=== PATIENT | female | born 1960 | race Caucasian/White ===

== ENCOUNTER 2024-05-24 20:57 | Emergency (ER) | payer MEDICARE, MEDICAID, SELFPAY ==
[2024-05-24 20:59] VITALS: BP 145/88; PULSE 78; RESP 20; TEMP 36.6; O2SAT 99
[2024-05-24 21:01] VITALS: PULSE 79; RESP 20; O2SAT 99; BMI 41.5
--- NOTE | 2024-05-24 21:37 | XR_ITS ---
Examination: CT cervical spine without contrast 2-D sagittal reconstructions 2-D coronal reconstructions 3-D reconstructions. Exam date and time:May 24, 2024 1040 hrs. Indications: Patient fell today with injury to the neck, neck pain CTDI:vol (mGy) 15.9 DLP: (mGycm) 332 Technique: Multiple 2 mm axial sections of the cervical spine have been obtained. The coronal and sagittal reconstructions have been obtained. 3-D reconstructions have been obtained. Low dose protocols were performed. One or more of the following dose reduction techniques were used; automated exposure control, adjustment of the mA and/or KV according to patient size, use of iterative reconstruction technique. Findings: Axial sections demonstrate intact base of the skull. C1 exhibit satisfactory relationship to the odontoid. No acute cervical vertebral body fracture seen. Alignment posterior spinous processes satisfactory. Impression: No acute cervical fracture.
--- NOTE | 2024-05-24 21:37 | XR_ITS ---
Examination: CT maxillofacial, without intravenous contrast. 2-D sagittal reconstructions. 3-D reconstructions. Date and time of exam:May 24, 2024 1040 hrs. Indications: Patient fell today with injury to the face, facial pain CTDI: vol (mGy):34.6 DLP: (mGycm):681 Technique: Multiple axial images of maxillofacial region, 3.0 mm slice thickness. 2-D sagittal and coronal reconstructions. 3-D reconstructions. Low dose protocols were performed. One or more of the following dose reduction techniques were used; automated exposure control, adjustment of the mA and/or KV according to patient size, use of iterative reconstruction technique. Findings: Frontal bone intact Orbital rims intact No nasal bone fracture Pterygoid plates maxilla and the mandible intact Impression: No acute facial fracture.
--- NOTE | 2024-05-24 21:37 | XR_ITS ---
Examination: Wrist, left 3 views Technique: Wrist AP, oblique, lateral 3 views Date and time of exam: May 24, 2024 2140 hrs. Indications: Patient fell today with intravenous, wrist pain. Findings: Acute comminuted impacted intra-articular fractures distal radial metaphysis Comminuted fractures distal ulna Carpal bones intact Impression: Acute comminuted impacted intra-articular fractures distal radial metaphysis
--- NOTE | 2024-05-24 21:37 | XR_ITS ---
Examination: CT brain head without contrast. 2-D sagittal coronal reconstructions Date and time of exam:May 24, 2024 1040 hrs. Indications: Patient fell today with injury to the head, head pain CTDI: vol (mGy):54.5 DLP: (mGycm):1059 Technique: Multiple CT axial sections of the brain have been obtained, 5 mm slice thickness. Contrast has not been administered. 2-D sagittal, coronal reconstructions have been obtained Low dose protocols were performed. One or more of the following dose reduction techniques were used; automated exposure control, adjustment of the mA and/or KV according to patient size, use of iterative reconstruction technique. Findings: No significant ventricular enlargement. Intra-axial or extra-axial hemorrhage density is not seen. No mass effect or midline shift Basal cisterns are not remarkable. Fourth ventricle is midline. Cranial vault intact. Impression: Negative for acute hemorrhage, mass effect or midline shift
--- NOTE | 2024-05-24 21:38 | PD.EDRME ---
Rapid Medical Screening Exam [facility], [facility] Arrival date/time: 05/24/24 20:57 63F with history of HTN presents to ED with L wrist hand and head/face pain after her dog took off while she was holding on the leash and she fell. Chief Complaint: Fall Vital signs: Vital Signs Temperature 97.9 F 05/24/24 20:59 Pulse Rate 78 05/24/24 20:59 Respiratory Rate 20 05/24/24 20:59 Blood Pressure 145/88 H 05/24/24 20:59 Pulse Oximetry (%) 99 05/24/24 20:59 Oxygen Delivery Method Room Air 05/24/24 20:59
[2024-05-24] MEDS: HYDROcodone/APAP 5/325 TABLET 1 TAB PO (21:50)
--- NOTE | 2024-05-24 22:24 | PD.EDFALL ---
ED Fall Injury RME/HPI General Chief Complaint: Fall Stated Complaint: FALL Time Seen by Provider: 05/24/24 22:23 Arrival date/time: 05/24/24 20:57 RME / HPI RME / HPI Narrative: 05/24/24 20:57 63F with history of HTN presents to ED with L wrist hand and head/face pain after her dog took off while she was holding on the leash and she fell. ------ Dr. Leung?s Main ED Evaluation: 63yo female with pmhx HTN accompanied by her granddaughter presents to the ED for a chief complaint of a fall. Patient states she was standing on the porch with her dog on a leash when the dog started chasing a cat, pulling her forward and causing her to fall off the porch. Patient endorses having left wrist pain and a headache. Denies any loss of consciousness. She denies any neck pain, chest pain, abdominal pain, shortness of breath or any other associated symptoms. No known allergies. Patient states she has broken her left wrist twice before. Related Data Previous Rx's ?Medication ?Instructions ?Recorded tramadol 50 mg tablet (Ultram) 50 mg PO Q4HR PRN PAIN #20 tabs 11/12/13 hydrocodone 5 mg-acetaminophen 325 1 tab PO BID PRN pain #10 tabs 05/25/24 mg tablet ibuprofen 600 mg tablet 600 mg PO Q6H PRN pain #20 tabs 05/25/24 Allergies Allergy/AdvReac Type Severity Reaction Status Date / Time No Known Allergies Allergy Mild Uncoded 12/19/08 18:44 Review of Systems Review of Systems Systems Reviewed: All systems reviewed, normal except as documented Past Medical History Social History SMOKING STATUS: Never smoker ED Exam Narrative Physical exam: GENERAL APPEARANCE: alert and oriented x 4, well-developed, well-nourished, no acute distress VITALS: All vitals were reviewed and the pulse ox is 99% on room air, which is normal according to my interpretation. HEENT: Normocephalic, atraumatic; pupils equal, round, reactive to light; EOMI; mucous membranes pink, moist; oropharynx clear NECK: Supple LUNGS: CTABL; no wheezes, no rales, no rhonchi HEART: Regular rate, regular rhythm; normal S1, S2; no murmurs ABDOMEN: non distended; normal BS; soft, no tenderness, no guarding, no rebound; no masses, no organomegaly, no hernia BACK: no CVA tenderness EXTREMITIES: atraumatic; no edema NEUROLOGIC: awake; alert and oriented x4; cranial nerves II-XII grossly intact; no focal sensory or motor deficits PSYCHIATRIC: appropriate mood and affect SKIN: warm, dry, normal color; no rashes Course Quality Measures none Orders Category Date Time Status splint [Splint / Immobilizer] STAT Care 05/25/24 01:[address] cervical spine wo con Stat Exams 05/24/24 21:[address] facial bones wo con Stat Exams 05/24/24 21:[address] head/brain wo con Stat Exams 05/24/24 21:37 Completed XR wrist LT 2V Stat Exams 05/25/24 02:24 Taken XR wrist comp LT min 3V Stat Exams 05/24/24 21:37 Completed Etomidate Inj [Amidate Inj] Med 05/25/24 02:15 Discontinued 20 mg IVP X1 ONE HYDROcodone*/APAP 5/325 [[place] 5/325] Med 05/24/24 21:37 Discontinued 1 tab PO X1 ONE HYDROcodone/APAP 10/325 [[place] 10/325] Med 05/25/24 02:36 Discontinued 1 tab PO X1 ONE Ketamine Inj Med 05/25/24 01:07 Discontinued 100 mg IVP X1 ONE Vital Signs Vital signs: Vital Signs Temperature 97.9 F 05/24/24 20:59 Pulse Rate 78 05/24/24 20:59 Respiratory Rate 20 05/24/24 20:59 Blood Pressure 145/88 H 05/24/24 20:59 Pulse Oximetry (%) 99 05/24/24 20:59 Oxygen Delivery Method Room Air 05/24/24 20:59 Procedures -ED Orthopedic Fracture Reduction Fracture #1: Time Out Performed: Yes Side: left Fracture Reduction Location: radius and ulna Analgesia: procedural sedation Technique: direct manipulation Post Reduction X-rays Demonstrate: acceptable reduction Post-reduction neuro exam: intact and no change Post-reduction vascular exam: intact and no change Splint Applied: Yes Patient Tolerated Procedure: well and no complications Procedural Sedation Indication: fracture/dislocation reduction Presedation Evaluation: Patient is alert, awake, and talking. She is sitting in semifowler's position. Preparation: monitoring tech applied, pulse oximeter, capnometry used, supplemental O2 applied, reversal agents at bedside, suction/airway equipment at bedside and IV secured IV Etomidate dose (mg): 10 Patient Tolerated Procedure: well and no complications Fall Patient data External records reviewed:: [facility] previous records (Per chart review, patient has no previous ED visits or admissions to this facility.) Clinical information provided by:: patient Social determinants that could affect healthcare access:: none Patient has the following chronic illnesses:: HTN How is presenting disease/condition affected by chronic disease/condition?: uneffected by Evaluation data The following diagnostics were reviewed and interpreted by me:: radiology exam(s) Lab and/or radiology exams considered but not ordered:: none Interpretation Summary: Post reduction x-ray of the left wrist shows great improvement of the radial and ulnar fractures, according to my interpretation. [facility] Report Signed Patient: [facility]. Record#: [id number] Birthdate: 1960 Age/Sex: 63 / F Location: [facility] Attending Dr: Ordering Physician: Dennis Ambriz PA-C Date of Service: 05/24/24 Procedure(s): XR wrist comp LT min 3V Accession Number(s): [id number] cc: Fran Cotter MD; Dennis Ambriz PA-C~ Examination: Wrist, left 3 views Technique: Wrist AP, oblique, lateral 3 views Date and time of exam: May 24, 2024 2140 hrs. Indications: Patient fell today with intravenous, wrist pain. Findings: Acute comminuted impacted intra-articular fractures distal radial metaphysis Comminuted fractures distal ulna Carpal bones intact Impression: Acute comminuted impacted intra-articular fractures distal radial metaphysis Dictated By: Fran Cotter MD Signed By: <Electronically signed by Fran Cotter MD in OV> 05/24/242146 [facility] Report Signed Patient: TAYLOR JOSE [facility]. Record#: [id number] Birthdate: 1960 Age/Sex: 63 / F Location: [facility] Attending Dr: Ordering Physician: Dennis Ambriz PA-C Date of Service: 05/24/24 Procedure(s): CT cervical spine wo con Accession Number(s): [id number] cc: Fran Cotter MD; NO PRIMARY/FAMILY,PHYSICIAN; Dennis Ambriz PA-C~ Examination: CT cervical spine without contrast 2-D sagittal reconstructions 2-D coronal reconstructions 3-D reconstructions. Exam date and time:May 24, 2024 1040 hrs. Indications: Patient fell today with injury to the neck, neck pain CTDI:vol (mGy) 15.9 DLP: (mGycm) 332 Technique: Multiple 2 mm axial sections of the cervical spine have been obtained. The coronal and sagittal reconstructions have been obtained. 3-D reconstructions have been obtained. Low dose protocols were performed. One or more of the following dose reduction techniques were used; automated exposure control, adjustment of the mA and/or KV according to patient size, use of iterative reconstruction technique. Findings: Axial sections demonstrate intact base of the skull. C1 exhibit satisfactory relationship to the odontoid. No acute cervical vertebral body fracture seen. Alignment posterior spinous processes satisfactory. Impression: No acute cervical fracture. Dictated By: Fran Cotter MD Signed By: <Electronically signed by Fran Cotter MD in OV> 05/24/24 6950 ------ [facility] Signed Patient: TAYLOR JOSE Record#: [id number] Birthdate: 1960 Age/Sex: 63 / F Location: [facility] Attending Dr: Ordering Physician: Dennis Ambriz PA-C Date of Service: 05/24/24 Procedure(s): CT facial bones wo con Accession Number(s): [id number] cc: Fran Cotter MD; NO PRIMARY/FAMILY,PHYSICIAN; Dennis Ambriz PA-C~ Examination: CT maxillofacial, without intravenous contrast. 2-D sagittal reconstructions. 3-D reconstructions. Date and time of exam:May 24, 2024 1040 hrs. Indications: Patient fell today with injury to the face, facial pain CTDI: vol (mGy):34.6 DLP: (mGycm):681 Technique: Multiple axial images of maxillofacial region, 3.0 mm slice thickness. 2-D sagittal and coronal reconstructions. 3-D reconstructions. Low dose protocols were performed. One or more of the following dose reduction techniques were used; automated exposure control, adjustment of the mA and/or KV according to patient size, use of iterative reconstruction technique. Findings: Frontal bone intact Orbital rims intact No nasal bone fracture Pterygoid plates maxilla and the mandible intact Impression: No acute facial fracture. Dictated By: Fran Cotter MD Signed By: <Electronically signed by Fran Cotter MD in OV> 05/24/24 [id number] [facility] Signed Patient: TAYLOR JOSE Record#: [id number] Birthdate: 1960 Age/Sex: 63 / F Location: [facility] Attending Dr: Ordering Physician: Dennis Ambriz PA-C Date of Service: 05/24/24 Procedure(s): CT head/brain wo con Accession Number(s): [id number] cc: Fran Cotter MD; NO PRIMARY/FAMILY,PHYSICIAN; Dennis Ambriz PA-C~ Examination: CT brain head without contrast. 2-D sagittal coronal reconstructions Date and time of exam:May 24, 2024 1040 hrs. Indications: Patient fell today with injury to the head, head pain CTDI: vol (mGy):54.5 DLP: (mGycm):1059 Technique: Multiple CT axial sections of the brain have been obtained, 5 mm slice thickness. Contrast has not been administered. 2-D sagittal, coronal reconstructions have been obtained Low dose protocols were performed. One or more of the following dose reduction techniques were used; automated exposure control, adjustment of the mA and/or KV according to patient size, use of iterative reconstruction technique. Findings: No significant ventricular enlargement. Intra-axial or extra-axial hemorrhage density is not seen. No mass effect or midline shift Basal cisterns are not remarkable. Fourth ventricle is midline. Cranial vault intact. Impression: Negative for acute hemorrhage, mass effect or midline shift Dictated By: Fran Cotter MD Signed By: <Electronically signed by Fran Cotter MD in OV> 05/24/24 6217 Medications / Prescriptions Medications or Prescriptions considered but not ordered:: none Medication administrations:: Medication Administration History Discontinued Medications Hydrocodone Bitart/Acetaminophen (Hydrocodone/Apap 5/325 Tablet) 1 tab PO X1 ONE Stop: 05/24/24 21:38 Last Admin: 05/24/24 21:50 Dose: 1 tab Documented By: BEN Hydrocodone Bitart/Acetaminophen (Hydrocodone/Apap 10/325 Tab) 1 tab PO X1 ONE Stop: 05/25/24 02:37 Last Admin: 05/25/24 02:48 Dose: 1 tab Documented By: MELANIE Etomidate (Etomidate Inj 2 Mg/Ml Vial 10 Ml) 20 mg IVP X1 ONE Stop: 05/25/24 02:16 Last Admin: 05/25/24 02:19 Dose: 10 mg Documented By: MELANIE Ketamine HCl (Ketamine 50 Mg/Ml Vial 10 Ml) 100 mg IVP X1 ONE Stop: 05/25/24 01:08 Last Admin: 05/25/24 02:32 Dose: Not Given Documented By: MELANIE Non-Admin Reason: Other, see note see above Consultations Consultation(s) initiated? (list below): No Diagnosis Fall Differential Diagnosis: other (ulnar fracture, radial fracture, dislocation, contusion) Most likely diagnosis given after review of the tests above:: see below Admission Indicated Admission indicated?: not indicated Admission Request Was there a request for admission?: No Disposition Plan Disposition Plan: Discharge Discharge Attestation Discharge Attestation: The patient and all family members were given an opportunity to ask questions and understood the discharge instructions. Discharge instructions specifically effects, indications for sooner follow up or return to the emergency department, and the expected course of current diagnosis. Patient condition: Stable Discharge Plan Plan Patient Disposition: HOME (Self Care) Disposition Comment: Stable for discharge Patient condition on transfer: Stable Prescriptions/Referrals Prescriptions/Med Rec: New ibuprofen 600 mg tablet 600 mg PO Q6H PRN (Reason: pain) Qty: 20 0RF hydrocodone-acetaminophen 5-325 mg tablet 1 tab PO BID MDD 2 PRN (Reason: pain) Qty: 10 0RF No Action tramadol [Ultram] 50 MG tablet 50 mg PO Q4HR PRN (Reason: PAIN) Qty: 20 0RF Rx Instructions: FOR PAIN, NOT TO EXCEED 8 TABS IN 24 HRS Referrals: No Primary/Family,Physician [Primary Care Provider] - In 1 week Clay Zapata MD [Physician] - In 1 week Problem List Clinical Impression: Fracture of radius and ulna near wrist Patient/Caregiver Discharge Instructions Discharge Activity: activity as tolerated Education Materials: Wrist Fracture, ED Forearm Fracture with Reduction Additional Instructions: Return to the emergency department for any worsening or any further medical problems If you notice any increased swelling, increased pain to the left hand, discoloration of your left fingers, numbness or tingling, or any other problems with your left hand please come back to the ER immediately otherwise you should follow-up with Dr. Tesfaye within the next week or so. I would give his office a call and make an appointment please He should follow-up with your primary care doctor as well within the next several days Please be careful when you are taking the [place]. You should not be driving or operating any heavy machinery while taking this medication. It may make you slightly dizzy Print Language: Bruneian Stand Alone Forms: [facility] Info., Patient Portal Info Letter
[2024-05-24 22:32] VITALS: BP 178/95; PULSE 77; RESP 18; TEMP 37.1; O2SAT 95
[2024-05-25] VITALS (11 sets, daily range): BP systolic 161–201; BP diastolic 95–119; PULSE 80–102; RESP 14–27; TEMP 36.9; O2SAT 94–100
[2024-05-25] MEDS: ETOMIDATE INJ 2 MG/ML VIAL 10 ML 20 MG IVP (02:19)
--- NOTE | 2024-05-25 02:24 | XR_ITS ---
Examination: Left wrist 2 views Technique one AP lateral left wrist 2 views Exam date and time: May 25, 2024 0230 hrs. Comparison May 24, 2024 Indications: Acute intra-articular comminuted impacted fracture distal radial metaphysis post reduction films. Findings: Improved alignment of the comminuted fracture distal radius Carpal bones intact Impression: Improved alignment comminuted fracture distal radius
--- NOTE | 2024-05-25 02:38 | EDNOTE_ITS ---
Emergency Room Addendum Addendum Narrative: Dr. Leung requests [facility] since his eScript has not been setup yet. Rx sent.
--- NOTE | 2024-05-25 02:38 | PD.EDADDENDU ---
Emergency Room Addendum Addendum Narrative: Dr. Leung requests [facility] since his eScript has not been setup yet. Rx sent.
[2024-05-25] MEDS: HYDROcodone/APAP 10/325 TAB PO (02:48)
== END 2024-05-25 03:06 | disposition home or self-care (01) ==
PROVIDERS: Emergency Provider Emergency Medicine
DX: S52.572A Other intraarticular fracture of lower end of left radius, initial encounter for closed fracture (principal); S52.692A Other fracture of lower end of left ulna, initial encounter for closed fracture; S19.9XXA Unspecified injury of neck, initial encounter; S09.93XA Unspecified injury of face, initial encounter; S09.90XA Unspecified injury of head, initial encounter; W19.XXXA Unspecified fall, initial encounter; Y93.K1 Activity, walking an animal
CPT/HCPCS: 25565; 70450; 70486; 72125; 73100; 73110; 99285; J3490; A9270

== ENCOUNTER → 2024-07-16 | Outpatient (CLI) | payer MEDICARE, MEDICAID, SELFPAY ==
--- NOTE | 2024-07-16 14:43 | XR_ITS ---
Examination: Left wrist 2 views Technique one AP lateral left wrist 2 views Exam date and time: July 16, 2024 1521 hours Comparison May 25 2024 FINDINGS: Partial healing fracture distal radial metaphysis with significant impaction Healed fracture distal ulna Severe osteopenia IMPRESSION: Partial healing impacted fracture distal radial metaphysis
== END | disposition home or self-care (01) ==
LOC: CDIM 14:32
PROVIDERS: Referring Provider Orthopaedic Surgery; Visit Provider Orthopaedic Surgery
DX: S52.92XD Unspecified fracture of left forearm, subsequent encounter for closed fracture with routine healing (principal); X58.XXXD Exposure to other specified factors, subsequent encounter
CPT/HCPCS: 73100

== ENCOUNTER 2025-04-30 13:30 | Emergency (ER) | payer MEDICARE, MEDICAID, SELFPAY ==
--- NOTE | 2025-04-30 13:33 | XR_ITS ---
Examination: CT thoracic spine, without contrast. 2-D sagittal reconstructions. 2-D coronal reconstructions. 3-D reconstructions. Date and time of exam: 04/30/2025, 2:34 p.m. INDICATION: Upper and lower back pain after fall. COMPARISON: None other than concurrent CT lumbar spine CTDI: vol (mGy): 35.1 DLP: (mGycm): 1098 Technique: Multiple 1.25 mm axial sections of the thoracic spine have been obtained. 2-D sagittal and coronal reconstructions have been obtained. 3-D reconstructions have been obtained. Low dose protocols were performed. One or more of the following dose reduction techniques were used; automated exposure control, adjustment of the mA and/or KV according to patient size, use of iterative reconstruction technique. Findings: Diffuse osteopenia is present. Acute low-grade compression fracture involves the superior and inferior endplates of L1. No evidence for acute vertebral compression fracture in the thoracic spine. The posterior elements appear intact. Multifocal spondylosis is present, including prominent bulky osteophytes including multilevel anterior bridging in the thoracic spine with prominent thoracic kyphosis. Mild to moderate thoracic dextroscoliosis is present. No evidence for large disc protrusion or disc extrusion. Small posterior disc protrusion is identified at T11-T12. There is no significant acquired central canal stenosis. Multilevel bilateral facet arthropathy is present. Moderate to borderline high-grade right neural foraminal stenosis identified at T2-T3, milder at T1-T2. No concerning lytic or blastic lesions are seen. An indeterminate solid nodule in the left upper lobe measures approximately 8 mm AP. IMPRESSION: Acute compression fractures involving the superior and inferior endplates of L1. Otherwise, no acute vertebral compression fracture in the thoracic spine. Multilevel thoracic degenerative changes. Indeterminate 8 mm left upper lobe nodule. A follow-up chest CT or PET/CT in 3 months is recommended.
--- NOTE | 2025-04-30 13:33 | XR_ITS ---
Examination: CT lumbar spine, without contrast. 2-D sagittal reconstructions. 2-D coronal reconstructions. 3-D reconstructions. Date and time of exam: 04/30/2025, 2:20 p.m. INDICATION: Upper and lower back pain after fall. COMPARISON: None other than concurrent CT thoracic spine CTDI: vol (mGy): 35.6 DLP: (mGycm): 1036 Technique: Multiple 1.25 mm axial sections of the lumbar spine have been obtained. 2-D sagittal and coronal reconstructions have been obtained. 3-D reconstructions have been obtained. Low dose protocols were performed. One or more of the following dose reduction techniques were used; automated exposure control, adjustment of the mA and/or KV according to patient size, use of iterative reconstruction technique. Findings: Prominent diffuse osteopenia is present. Acute low-grade compression fractures of the L1 superior and inferior endplates is identified. There is approximate 26% vertical height loss. No fracture retropulsion. No other acute lumbar vertebral fractures are seen. No aggressive bone lesions. Multilevel lumbar spondylosis is present, including Baastrup's degenerative changes and bilateral facet arthropathy. No evidence for significant disc space narrowing. At L5-S1, a mild grade 1 anterolisthesis is present with a multifactorial moderate right-sided and very mild left-sided neural foraminal stenosis, as well as mild central canal stenosis due to severe bilateral facet arthropathy. At L4-L5, there is a minimal grade 1 anterolisthesis and there is mild hypertrophic facet arthropathy and ligamentum flavum thickening/buckling resulting in severe central canal stenosis, moderate left neural foraminal stenosis and mild to moderate right neural foraminal stenosis. At L3-L4, there is a very mild broad posterior disc protrusion. There is bilateral hypertrophic facet arthropathy. Central canal stenosis and right neural foraminal stenosis are minimal. Disc ossify complex contributes to moderate left neural foraminal stenosis and combination of facet arthropathy. At L2-L3, there is a mild broad posterior disc protrusion slightly indenting the thecal sac and mild encroaching the lower ventral portions of the neural foramina. No significant acquired central canal or neural foraminal stenosis. At L1-L2, no significant disc protrusion, no significant acquired central canal or neural foraminal stenosis. No evidence for retroperitoneal hematoma, lymphadenopathy or other mass in the [id number]. Aortobiiliac atherosclerotic calcifications without aneurysm by size criteria although there is a slight ectasia of the infrarenal abdominal aorta measuring approximately 2.3 x 2.0 cm in transaxial dimensions. Punctate nonobstructive calculus at the inferior pole right kidney. Impression: Acute compression fractures of the L1 superior and inferior endplates without fracture or retropulsion. Multilevel lumbar spondylosis and degenerative disc changes with central canal and neural foraminal stenosis, greatest at L4-L5. Ancillary findings as above.
--- NOTE | 2025-04-30 13:34 | PD.EDADULT ---
ED General RME/HPI General Chief complaint: Fall Stated complaint: FALL Time Seen by Provider: 04/30/25 13:33 Arrival date/time: 04/30/25 13:30 CC: Mid/low back pain HPI patient was tugging on a door that was jammed it fairly popped open causing the patient to fall backwards landing on her back. Occurred at approximately 10:20 AM. The patient took half a Vicodin called 911 several hours later. Now presents with hypertension. EMS report no other symptoms. Low back pain is 7-8 on a 10 scale. Patient denies bowel or bladder symptoms saddle anesthesia numbness tingling or weakness in the lower extremities. Related Data Previous Rx's ?Medication ?Instructions ?Recorded tramadol 50 mg tablet (Ultram) 50 mg PO Q4HR PRN PAIN #20 tabs 11/12/13 hydrocodone 5 mg-acetaminophen 325 1 tab PO BID PRN pain #10 tabs 05/25/24 mg tablet ibuprofen 600 mg tablet 600 mg PO Q6H PRN pain #20 tabs 05/25/24 ibuprofen 800 mg tablet 800 mg PO TID PRN pain #30 tabs 05/30/24 meloxicam 7.5 mg tablet 7.5 mg PO QDAY #14 tabs 04/30/25 ondansetron 4 mg disintegrating 4 mg PO Q8H #10 tabs 04/30/25 tablet Allergies Allergy/AdvReac Type Severity Reaction Status Date / Time No Known Allergies Allergy Mild Uncoded 12/19/08 18:44 Review of Systems Review of Systems Narrative Review of Systems: GEN: No fever, no chills, no weight loss EYES: No discharge, no visual changes, no pain HEENT: No ear pain, no congestion, no sore throat PULM: No shortness of breath, no cough, no congestion CV: No chest pain, no dyspnea on exertion, no palpitations GI: No nausea, no vomiting, no diarrhea, no pain, no constipation : No frequency, no urgency, no dysuria MUSC/SKEL: No joint pain, + back pain SKIN: No rash PSYCH: No hallucinations, no depression HEME/LYMPH: No easy bleeding or bruising tendencies NEURO: No weakness, no headache ED Exam Narrative Physical exam: [General: Obese not in moderate discomfort but not in any acute distress Head normocephalic no step-offs hematoma induration ulceration or crepitus and no depressions. HEENT: Eyes pupils are PERRLA EOMs are intact mouth pink moist membranes uvula is midline swallow symmetrical phonation is normal. All other subsystems of HEENT are within acceptable limits Neck is supple nontender no tenderness with palpation of the cervical spine processes. Full range of motion flexion extension and rotation cleared via Nexus criteria. Chest equal chest rise nontender to palpation Respiratory: Clear to auscultation no wheezes crackles or rubs CV: Rate rhythm is regular no murmurs rubs or clicks Abdomen is distended secondary to body habitus soft nontender no masses positive bowel sounds all 4 quadrants Back: Mid to lower back pain with tenderness to palpation no gross deformities appreciated. Tenderness from T10-L4. Skin: Intact no petechiae rash induration ulceration or crepitus Extremities: Decreased range of motion of the lower extremity secondary to back pain. Moving all other extremities against resistance cap refill less than 2 seconds neurosensory intact Neuro: Awake alert oriented x3 Glascow coma 15 no focal deficits cranial nerves II through XII are grossly intact. Course Course Course Narrative: Patient is informed of her condition, will place the patient in a TLSO brace, and discharged her home with pain medication. Patient is to follow-up with orthopedics. If there are neurologic symptoms patient is advised to return the emergency room for reevaluation. Patient is advised also that she is now a higher fall risk. Quality Measures none Orders Category Date Time Status Miscellaneous Nursing Order NOW Care 04/30/25 15:56 Completed Saline [Insert IV] NOW Care 04/30/25 13:[address] lumbar spine wo con Stat Exams 04/30/25 13:[address] thoracic spine wo con Stat Exams 04/30/25 13:33 Completed CBC Stat Lab 04/30/25 14:10 Completed CMP [Comprehensive Metabolic Panel] Stat Lab 04/30/25 14:10 Completed PT [Prothrombin Time with INR] Stat Lab 04/30/25 14:10 Completed PTT [Partial Thromboplastin Time] Stat Lab 04/30/25 14:10 Completed Ketorolac Inj [Toradol Inj] Med 04/30/25 15:28 Discontinued 15 mg IVP X1 ONE Morphine* Inj Med 04/30/25 13:40 Discontinued 4 mg IVP X1 ONE Ondansetron Inj [Zofran Inj] Med 04/30/25 13:40 Discontinued 4 mg IVP X1 ONE Prochlorperazine Inj [Compazine Inj] Med 04/30/25 16:26 Discontinued 10 mg IV X1 ONE hydrALAZINE INJ [Apresoline Inj] Med 04/30/25 19:25 Discontinued 10 mg IVP X1 ONE oxyCODONE/APAP 5/325 [Percocet 5/325] Med 04/30/25 15:56 Discontinued 1 tab PO X1 ONE Vital Signs Vital signs: Vital Signs Temperature 97.6 F 04/30/25 13:50 Pulse Rate 77 04/30/25 13:50 Respiratory Rate 18 04/30/25 13:50 Blood Pressure 184/112 H 04/30/25 13:50 Pulse Oximetry (%) 97 04/30/25 13:50 Oxygen Delivery Method Room Air 04/30/25 13:50 Discharge Plan Plan Patient Disposition: HOME (Self Care) Patient condition on transfer: Stable Prescriptions/Referrals Prescriptions/Med Rec: New meloxicam 7.5 mg tablet 7.5 mg PO QDAY Qty: 14 0RF ondansetron 4 mg tablet,disintegrating 4 mg PO Q8H Qty: 10 0RF No Action tramadol [Ultram] 50 MG tablet 50 mg PO Q4HR PRN (Reason: PAIN) Qty: 20 0RF Rx Instructions: FOR PAIN, NOT TO EXCEED 8 TABS IN 24 HRS ibuprofen 600 mg tablet 600 mg PO Q6H PRN (Reason: pain) Qty: 20 0RF hydrocodone-acetaminophen 5-325 mg tablet 1 tab PO BID MDD 2 PRN (Reason: pain) Qty: 10 0RF ibuprofen 800 mg tablet 800 mg PO TID PRN (Reason: pain) Qty: 30 0RF Referrals: No Primary/Family,Physician [Primary Care Provider] - In 1 week Melo Nava MD [Physician, Orthopedics] - In 1 week Problem List Clinical Impression: Closed L1 vertebral fracture Patient/Caregiver Discharge Instructions Education Materials: Back Safety: Pushing and Pulling, ED Transverse Process Fracture Additional Instructions: Wear the brace during the the day, take the medications as needed for pain. Follow-up with an orthopedic doctor of your choice of the 1 listed above preferably look for a back specialist. Be very careful with balance, expect this to heal over the next 8 weeks. Print Language: Mauritanian Stand Alone Forms: [place] [employer] Work/School Release, Patient Portal Info Letter PA/BRIDGETT Supervising Physician BENEDICT/BRIDGETT Supervising Physician: Sukh Romero ENP [facility] Labs Labs: interpreted by me Lab(s) Interpretation(s): CBC shows a mild leukocytosis of 15.5 no anemia or thrombocytopenia CMP shows no significant electrolyte imbalances other than a glucose of 149 no transaminitis or T. bili elevation. Imaging Imaging interpretation: interpreted by me Imaging Interpretation(s): L CT shows L1 superior and inferior endplate fracture without retropulsion. Thoracic CT shows the same no other acute findings Medication Administration(s) Medication Administration History Discontinued Medications Hydralazine HCl (Hydralazine Inj 20 Mg/Ml Vial) 10 mg IVP X1 ONE Stop: 04/30/25 19:26 Last Admin: 04/30/25 19:30 Dose: 10 mg Documented By: CB Ketorolac Tromethamine (Ketorolac Inj 30 Mg/Ml Vial) 15 mg IVP X1 ONE Stop: 04/30/25 15:29 Last Admin: 04/30/25 15:35 Dose: 15 mg Documented By: ED Morphine Sulfate (Morphine Sulf Inj 4 Mg/Ml Vial) 4 mg IVP X1 ONE Stop: 04/30/25 13:41 Last Admin: 04/30/25 14:18 Dose: 4 mg Documented By: ED Ondansetron HCl (Ondansetron Inj 2 Mg/Ml Inj 2 Ml) 4 mg IVP X1 ONE; Protocol Stop: 04/30/25 13:41 Last Admin: 04/30/25 14:14 Dose: 4 mg Documented By: ED Oxycodone/Acetaminophen (Oxycodone/Apap 5/325 Tablet) 1 tab PO X1 ONE Stop: 04/30/25 15:57 Last Admin: 04/30/25 18:29 Dose: 1 tab Documented By: ED Prochlorperazine Edisylate (Prochlorperazine Inj 5 Mg/Ml Vial 2 Ml) 10 mg IV X1 ONE; Protocol Stop: 04/30/25 16:27 Last Admin: 04/30/25 16:33 Dose: 10 mg Documented By: ED
[2025-04-30 13:39] VITALS: PULSE 82; RESP 22; O2SAT 98; BMI 37.8
[2025-04-30 13:50] VITALS: BP 184/112; PULSE 77; RESP 18; TEMP 36.4; O2SAT 97
[2025-04-30] MEDS: ONDANSETRON INJ 2 MG/ML INJ 2 ML 4 MG IVP (14:14)
[2025-04-30] MEDS: MORPHINE SULF INJ 4 MG/ML VIAL IVP (14:18)
--- NOTE | 2025-04-30 14:20 | PC.NURSE ---
Pt. here from home to room 2, pt. states she was trying to open her door and fell backwards, pt. states she landed on the wood floor, pt. complaining of pain to the middle of her back, no bruising noted to pt.'s mid back, pt. states no pain below her underwear line. Pt. states the pain is causing her nausea. No s/s of distress noted at this time.
[2025-04-30 15:03] LABS: Alanine Aminotransferase 22 U/L (10-49); Albumin, Serum 5.3 gm/dL (3.4-4.8); Albumin/Globulin Ratio 2.5 (1.2-2.2); Alkaline Phosphatase 84 U/L (46-116); Anion Gap 12 (7-16); Aspartate Amino Transferase 29 U/L (0-34); BUN/Creatinine Ratio 11 Ratio (12-20); Bilirubin,Total 0.7 mg/dL (0.3-1.2); Blood Urea Nitrogen 8 mg/dL (9-23); Calcium 10.1 mg/dL (8.3-10.6); Calcium (Corrected) 10.1 mg/dL (8.5-10.1); Carbon Dioxide 24.5 mMol/L (20.0-31.0); Chloride 103 mMol/L (98-107); Creatinine (Component) 0.7 mg/dL (0.6-1.3); Estimated Creatinine Clearance 81.1 mL/min (>60); Globulin 2.1 gm/dL (2.3-3.5); Glucose 149 mg/dL (74-106); Osmolality,Calculated 278 (275-295); Potassium 4.4 mMol/L (3.4-5.1); Sodium 139 mMol/L (136-145); Total Protein 7.4 gm/dL (5.7-8.2); eGFR > 60 See Note
[2025-04-30 15:20] LABS: INR 1.0 (0.9-1.3); Partial Thromboplastin Time 22.6 Seconds (22.0-36.0); Prothrombin Time 10.6 Seconds (9.0-12.2)
[2025-04-30] MEDS: KETOROLAC INJ 30 MG/ML VIAL 15 MG IVP (15:35)
[2025-04-30 15:53] LABS: Basophils # (Auto) 0.1 Thou/mm3 (0.0-0.2); Basophils % (Auto) 0 % (0-2.5); Eosinophils # (Auto) 0.0 Thou/mm3 (0.0-0.5); Eosinophils % (Auto) 0 % (0-10); Hematocrit 45.0 % (36.0-46.0); Hemoglobin 14.6 g/dL (12.0-16.0); Immature Granulocytes Auto 0.07 Thou/mm3 (0.00-0.00); Lymphocytes # (Auto) 1.3 Thou/mm3 (1.0-4.8); Lymphocytes % (Auto) 9 % (10-50); Mean Corpuscular HGB Conc 32.4 g/dl (31.0-37.0); Mean Corpuscular Hemoglobin 29.3 pg (25.0-35.0); Mean Corpuscular Volume 90 fL (80-100); Monocytes # (Auto) 0.5 Thou/mm3 (0.0-0.8); Monocytes % (Auto) 3 % (0-12); Neutrophils # (Auto) 13.5 Thou/mm3 (1.8-7.7); Neutrophils % (Auto) 87 % (37-80); Nucleated Red Blood Cell # 0.00 Thou/mm3 (0.00-0.00); Nucleated Red Blood Cell % 0 /100 WBC (0); Platelet Count 244 Thou/mm3 (140-440); RDW Standard Deviation 41.8 fL (36.4-46.3); Red Blood Count 4.99 Miln/mm3 (4.00-5.20); White Blood Count 15.5 Thou/mm3 (3.6-11.0)
[2025-04-30] MEDS: PROCHLORPERAZINE INJ 5 MG/ML VIAL 2 ML 10 MG IV (16:33)
[2025-04-30 19:30] VITALS: BP 194/116; PULSE 77
[2025-04-30] MEDS: hydrALAZINE INJ 20 MG/ML VIAL 10 MG IVP (19:30)
[2025-04-30 19:31] VITALS: BP 194/116; PULSE 77; RESP 19; TEMP 36.8; O2SAT 99
[2025-04-30 20:32] VITALS: BP 179/100; PULSE 79; RESP 16; TEMP 36.8; O2SAT 99
== END 2025-04-30 20:34 | disposition home or self-care (01) ==
PROVIDERS: Registered Nurse General Practice; Emergency Provider Emergency Medicine
DX: S32.018A Other fracture of first lumbar vertebra, initial encounter for closed fracture (principal); W23.0XXA Caught, crushed, jammed, or pinched between moving objects, initial encounter; I10 Essential (primary) hypertension
CPT/HCPCS: 36415; 72128; 72131; 80053; 85025; 85610; 85730; 96374; 96375; 99284; J0360; J0780; J1885; J2270; J2405; A9270

== ENCOUNTER 2025-05-02 10:53 | Emergency (ER) | payer MEDICARE, MEDICAID, SELFPAY ==
[2025-05-02] VITALS (8 sets, daily range): BP systolic 149–214; BP diastolic 89–155; PULSE 86–99; RESP 16–21; TEMP 37.1–37.5; O2SAT 94–98; BMI 37.8
--- NOTE | 2025-05-02 11:48 | PD.EDBACK ---
ED Back Injury Pain RME/HPI General Chief Complaint: Back Pain/Injury Stated Complaint: BACK PAIN Time Seen by Provider: 05/02/25 11:16 Arrival date/time: 05/02/25 10:53 64-year-old female patient with significant history of hypertension, came in for evaluation regarding ground-level fall. Patient sustained a ground-level fall about 2 days ago, landing on her buttocks. Patient came today to the emergency room, and was noted to have L1 superior endplate fracture with loss of height about 26%. Patient denies any head injury denies any neck pain denies any chest pain. Patient was discharged home. At home patient was noted to be vomiting a lot according to her due to so much pain. She denies any urinary or bladder incontinence. She lives with her daughter who is overwhelmed right now who cannot take over her due to another family issues. Patient denies any lower extremity weakness or paresthesia. Her pain is described as sharp pain, severity moderate. She is asking for help and pain control. Related Data Home Medications ?Medication ?Instructions ?Recorded ?Confirmed atorvastatin 20 mg tablet 20 mg PO QDAY 05/02/25 05/02/25 lisinopril 10 mg tablet 10 mg PO QDAY 05/02/25 05/02/25 Previous Rx's ?Medication ?Instructions ?Recorded ibuprofen 600 mg tablet 600 mg PO Q6H PRN pain #20 tabs 05/25/24 Allergies Allergy/AdvReac Type Severity Reaction Status Date / Time No Known Allergies Allergy Verified 05/02/25 11:11 Review of Systems Review of Systems Narrative Review of Systems: Review of system reviewed and within normal limits except mentioned in HPI ED Exam Narrative Physical exam: VITAL SIGNS: Reviewed. GENERAL APPEARANCE: Alert and interactive, follows commands, no acute distress, HEAD AND FACE: Non-traumatic. ENT: PERRL, pink conjunctivitis, eyelid no trauma, Mucous membrane moist. NECK: Supple, nontender, no nuchal rigidity. CHEST: No tenderness, no crepitus, no paradoxical movement, no retractions. LUNGS: Clear, well ventilated, symmetric, no rales, no wheezing, no ronchi, no stridor, good breath sounds bilaterally. HEART: Regular rate, regular rhythm, no murmur, no gallops. ABDOMEN: Soft, positive bowel sounds, nondistended, no guarding, nontender, no rebound, no masses, RECTAL: Deferred. GENITAL: Deferred. NEUROLOGICAL: Gross motor function intact sensory function intact, Appropriate for age. MUSCULOSKELETAL: low back tenderness, no crepitus, full range of motion. EXTREMITIES: Nontender, full range of motion. SKIN: Color pink, dry, no rash, no lacerations, no abrasions, no contusions. LYMPHATICS: Deferred. Course Quality Measures none Orders Category Date Time Status IV [Insert IV] NOW Care 05/02/25 11:55 Active PT [Referral Physical Therapy] Stat Cons 05/02/25 11:47 Completed Transfer/Discharge Routine Discharge 05/02/25 Active CBC [CBC] Stat Lab 05/02/25 12:08 Completed CMP [Comprehensive Metabolic Panel] Stat Lab 05/02/25 12:08 Completed PTT [Partial Thromboplastin Time] Stat Lab 05/02/25 12:08 Completed UA, C/S IF [Urinalysis, C/S if Indicated] Stat Lab 05/02/25 13:21 Completed HYDROcodone/APAP 10/325 [Lorane 10/325] Med 05/02/25 13:33 Discontinued 1 tab PO X1 ONE Morphine* Inj Med 05/02/25 11:47 Discontinued 4 mg IVP X1 ONE Ondansetron Inj [Zofran Inj] Med 05/02/25 11:46 Discontinued 4 mg IVP X1 ONE Ringers Lactated 1000 ml [Lactated Ringers] 1,000 ml Med 05/02/25 11:48 Discontinued IV 999 mls/hr cloNIDine HCL [Catapres] Med 05/02/25 11:52 Discontinued 0.1 mg PO X1 ONE hydrALAZINE HCL [Apresoline] Med 05/02/25 13:26 Discontinued 50 mg PO X1 ONE Referral Maid Housekeeper NOW 05/02/25 11:46 Active Vital Signs Vital signs: Vital Signs Temperature 98.8 F 05/02/25 11:02 Pulse Rate 90 05/02/25 11:02 Respiratory Rate 21 H 05/02/25 11:02 Blood Pressure 203/124 H 05/02/25 11:02 Pulse Oximetry (%) 94 L 05/02/25 11:02 Oxygen Delivery Method Room Air 05/02/25 11:02 Back Pain / Injury MDM Narrative MDM Narrative:: 64-year-old female patient with significant history of hypertension, came in for evaluation regarding ground-level fall. Patient sustained a ground-level fall about 2 days ago, landing on her buttocks. Patient came today to the emergency room, and was noted to have L1 superior endplate fracture with loss of height about 26%. Patient denies any head injury denies any neck pain denies any chest pain. Patient was discharged home. At home patient was noted to be vomiting a lot according to her due to so much pain. She denies any urinary or bladder incontinence. She lives with her daughter who is overwhelmed right now who cannot take over her due to another family issues. Patient denies any lower extremity weakness or paresthesia. Her pain is described as sharp pain, severity moderate. She is asking for help and pain control. Plan of care discussed with the patient including pain control and placement of acute rehab hospital and patient agrees with the plan. Patient was referred to physical therapy, who recommends that patient is to be transferred to a rehab hospital for pain control and to regain mobility. Patient's laboratory workup came back unremarkable. Patient received IV fluids, morphine IV, clonidine and hydralazine. Currently patient's pain is bearable. Was referred to social professionals. Patient was accepted for acute rehab in [facility] in [place] Patient data External records reviewed:: None Clinical information provided by:: patient Social determinants that could affect healthcare access:: none Patient has the following chronic illnesses:: Hypertension How is presenting disease/condition affected by chronic disease/condition?: uneffected by Evaluation data The following diagnostics were reviewed and interpreted by me:: lab results and radiology exam(s) Lab and/or radiology exams considered but not ordered:: None Interpretation Summary: See MDM Medications / Prescriptions Medications or Prescriptions considered but not ordered:: None Medication administrations:: Medication Administration History Discontinued Medications Hydrocodone Bitart/Acetaminophen (Hydrocodone/Apap 10/325 Tab) 1 tab PO X1 ONE Stop: 05/02/25 13:34 Last Admin: 05/02/25 13:42 Dose: 1 tab Documented By: BUSHRA Clonidine (Clonidine Hcl 0.1 Mg Tablet) 0.1 mg PO X1 ONE Stop: 05/02/25 11:53 Last Admin: 05/02/25 12:02 Dose: 0.1 mg Documented By: BUSHRA Hydralazine HCl (Hydralazine Hcl 25 Mg Tablet) 50 mg PO X1 ONE Stop: 05/02/25 13:27 Last Admin: 05/02/25 13:42 Dose: 50 mg Documented By: BUSHRA Lactated Ringer's (Lactated Ringers) 1,000 mls @ 999 mls/hr IV .Q1H1M ONE Stop: 05/02/25 12:48 Last Infusion: 05/02/25 13:15 Dose: Infused Documented By: Admin: 05/02/25 12:01 Dose: 999 mls/hr Documented By: BUSHRA Morphine Sulfate (Morphine Sulf Inj 4 Mg/Ml Vial) 4 mg IVP X1 ONE Stop: 05/02/25 11:48 Last Admin: 05/02/25 12:02 Dose: 4 mg Documented By: BUSHRA Ondansetron HCl (Ondansetron Inj 2 Mg/Ml Inj 2 Ml) 4 mg IVP X1 ONE; Protocol Stop: 05/02/25 11:47 Last Admin: 05/02/25 12:01 Dose: 4 mg Documented By: BUSHRA Zofran, morphine, IV fluids hydralazine clonidine and Lorane Consultations Consultation(s) initiated? (list below): No Diagnosis Differential diagnosis back pain/injury: sciatica and thoracic back pain Most likely diagnosis given after review of the tests above:: L1 compression fracture status post fall, pain control Admission Indicated Admission indicated?: indicated (Accepted to [facility] in [place]) Admission Request Was there a request for admission?: No Disposition Plan Disposition Plan: Discharge Discharge Attestation Discharge Attestation: Patient was discharged to [facility] in [place]. Patient condition: Stable Discharge Plan Plan Patient Disposition: [facility] Care [facility] Facility Pt Being Transferred to: Other-Specify in comment Service Needed for Transfer: Pain Management Discharge Disposition comment: Stable Prescriptions/Referrals Prescriptions/Med Rec: No Action ibuprofen 600 mg tablet 600 mg PO Q6H PRN (Reason: pain) Qty: 20 0RF atorvastatin 20 mg tablet 20 mg PO QDAY Patient Comments: TAKE 1 TABLET BY MOUTH EVERY DAY lisinopril 10 mg tablet 10 mg PO QDAY Patient Comments: TAKE 1 TABLET BY MOUTH EVERY DAY Referrals: Palak Glover PA-C [Primary Care Provider] - In 1 week Problem List Clinical Impression: Closed L1 vertebral fracture, Inadequate pain control Patient/Caregiver Discharge Instructions Discharge Activity: as per physical therapy Education Materials: Back Safety Bed, How Bones Heal Additional Instructions: Thank you for the opportunity for serving you today. You are stable for discharged to acute rehab hospital. You are advised to: Return to ED for worsening of symptoms Increase oral fluids Take Lorane as needed for pain Back precaution as instructed Print Language: Mosotho Stand Alone Forms: [employer]., Patient Portal Info Letter PA/CERTIFIED ORTHOPTIST Supervising Physician BENEDICT/CERTIFIED ORTHOPTIST Supervising Physician: MD Apryl
[2025-05-02] MEDS: ONDANSETRON INJ 2 MG/ML INJ 2 ML 4 MG IVP (12:01)
[2025-05-02] MEDS: RINGERS LACTATED 1000 ML 1,000 ML 999 ML IV (12:01)
[2025-05-02] MEDS: MORPHINE SULF INJ 4 MG/ML VIAL IVP (12:02)
--- NOTE | 2025-05-02 12:11 | PC.SS ---
Addendum entered by Gretel Solis 05/02/25 15:45: SS provided RN Lauren with Nurse report contact number. SS met with patient and updated her on ETA. Patient on the phone with her daughter, and patient updated her on ETA. Addendum entered by Gretel Solis 05/02/25 15:24: SS follow up note; SS was contacted by Shani from [facility] requesting updated Vital signs and and medication list. SS send requested information to peggy. ETA was set with [facility] @ 6PM. Dr. Deras is the accepting Dr. RN report line [phone]. SS will update patient's nurse and patient. SS will stand by for further needs. Addendum entered by Gretel Solis 05/02/25 14:03: SS follow up note; SS met with patient at bedside to provide Acute rehab choices. Patient informed SS she would like to discharge to [facility]. SS was contacted by Peggy from [facility] and she informed SS that patient would like to discharge to [facility]. Peggy inquired about patient's BP and Pain control. Inge informed SS they will be able to transport patient at a later bean picker once BP is controlled. SS verbalized understanding. . Original Note: SS was contacted by Charge nurse, Lauren informing SS that patient was needing SNF placement. SS informed Dr. Bustos that patient does not qualify for SNF placement, however Dr. Pink informed SS to submit for acute rehab. SS sent referral for Acute rehab through [facility]. Patient is pending PT evaluation.
[2025-05-02 12:20] LABS: Basophils # (Auto) 0.0 Thou/mm3 (0.0-0.2); Basophils % (Auto) 0 % (0-2.5); Eosinophils # (Auto) 0.0 Thou/mm3 (0.0-0.5); Eosinophils % (Auto) 0 % (0-10); Hematocrit 45.4 % (36.0-46.0); Hemoglobin 15.6 g/dL (12.0-16.0); Immature Granulocytes Auto 0.06 Thou/mm3 (0.00-0.00); Lymphocytes # (Auto) 1.0 Thou/mm3 (1.0-4.8); Lymphocytes % (Auto) 8 % (10-50); Mean Corpuscular HGB Conc 34.4 g/dl (31.0-37.0); Mean Corpuscular Hemoglobin 30.0 pg (25.0-35.0); Mean Corpuscular Volume 87 fL (80-100); Monocytes # (Auto) 0.6 Thou/mm3 (0.0-0.8); Monocytes % (Auto) 5 % (0-12); Neutrophils # (Auto) 11.7 Thou/mm3 (1.8-7.7); Neutrophils % (Auto) 87 % (37-80); Nucleated Red Blood Cell # 0.00 Thou/mm3 (0.00-0.00); Nucleated Red Blood Cell % 0 /100 WBC (0); Platelet Count 201 Thou/mm3 (140-440); RDW Standard Deviation 40.1 fL (36.4-46.3); Red Blood Count 5.20 Miln/mm3 (4.00-5.20); White Blood Count 13.5 Thou/mm3 (3.6-11.0)
[2025-05-02 12:35] LABS: Partial Thromboplastin Time 25.5 Seconds (22.0-36.0)
[2025-05-02 12:41] LABS: Alanine Aminotransferase 16 U/L (10-49); Albumin, Serum 5.1 gm/dL (3.4-4.8); Albumin/Globulin Ratio 2.2 (1.2-2.2); Alkaline Phosphatase 82 U/L (46-116); Anion Gap 13 (7-16); Aspartate Amino Transferase 29 U/L (0-34); BUN/Creatinine Ratio 24 Ratio (12-20); Bilirubin,Total 1.4 mg/dL (0.3-1.2); Blood Urea Nitrogen 12 mg/dL (9-23); Calcium 9.4 mg/dL (8.3-10.6); Calcium (Corrected) 9.4 mg/dL (8.5-10.1); Carbon Dioxide 23.8 mMol/L (20.0-31.0); Chloride 96 mMol/L (98-107); Creatinine (Component) 0.5 mg/dL (0.6-1.3); Estimated Creatinine Clearance 113.5 mL/min (>60); Globulin 2.3 gm/dL (2.3-3.5); Glucose 132 mg/dL (74-106); Osmolality,Calculated 268 (275-295); Potassium 3.8 mMol/L (3.4-5.1); Sodium 133 mMol/L (136-145); Total Protein 7.4 gm/dL (5.7-8.2); eGFR > 60 See Note
--- NOTE | 2025-05-02 13:22 | PC.NURSE ---
Physical therapists here to evaluate patient.
[2025-05-02 13:26] LABS: Collection Type, Urine Clean Catch
[2025-05-02 13:30] LABS: Bilirubin,Urine Negative (Negative); Blood,Urine 1+ (Negative); Clarity,Urine Clear (Clear/Hazy); Color,Urine Yellow (Lt Yel-Yel); Culture Indicated,Urine Not Indicated; Glucose, Urine Trace (Negative); Ketones,Urine 4+ (Negative); Leukocyte Esterase,Urine Negative (Negative); Nitrite,Urine Negative (Negative); PH,Urine 6.5 (5.0-7.0); Protein,Urine 2+ (Neg - Trace); RBC,Urine 2 /hpf (0-3); Specific Gravity,Urine 1.023 (1.001-1.035); Squamous Epithelial Cell,Urine 5 /hpf (0-5); Urobilinogen,Urine Negative mg/dL (0.0-1.0); WBC,Urine 1 /hpf (0-5)
--- NOTE | 2025-05-02 13:33 | PC.NURSE ---
Patient c/o 8/10 pain to mid to lower back, patient states pain is slightly better, [employer] made aware.
--- NOTE | 2025-05-02 14:21 | PC.PT ---
PT eval completed.
--- NOTE | 2025-05-02 18:05 | PC.NURSE ---
Attempted nurse to nurse report [phone],to [facility] in [place], spoke with Marco matthews nurse unavailable, left my name and numer to call back for report, [facility] here to take patient to their facility.
--- NOTE | 2025-05-02 18:42 | PC.NURSE ---
Report given to Lauren rodriguez at [facility] in [place],
== END 2025-05-02 18:30 | disposition short-term general hospital (02) ==
PROVIDERS: Nurse Practitioner Family; Emergency Provider Family Medicine; PCP Physician Assistant
DX: S32.019A Unspecified fracture of first lumbar vertebra, initial encounter for closed fracture (principal); W19.XXXA Unspecified fall, initial encounter
CPT/HCPCS: 36415; 80053; 81001; 85025; 85730; 96361; 96374; 96375; 99284; J2270; J2405; J7120; A9270